=== PATIENT | male | born 1995 | race Two or more races ===

== ENCOUNTER 2020-04-28 10:40 | Emergency (ER) | payer OTHER ==
[~2020-04-28] VITALS: Ht 180.3 cm; Wt 96.2 kg
[2020-04-28 10:47] VITALS: BP 151/84
--- NOTE | 2020-04-28 10:51 | NUR ---
SEEN AND EXAMINED BY .
[2020-04-28] MEDS ORDERED: KETOROLAC TROMETHAMINE 15 MG/ML VIAL ONE (10:55)
[2020-04-28] MEDS ORDERED: TDAP [DIPH/PERTUSSIS/TET] 0.5 ML VIAL IM ONE ×2 (10:55→11:00)
--- NOTE | 2020-04-28 10:58 | NUR ---
PT IS WHEELED TO RADIOLOGY FOR XRAY.
[2020-04-28] MEDS ORDERED: KETOROLAC TROMETHAMINE INJ 30 MG/ML VIAL IM ONE (11:00)
== END 2020-04-28 12:30 | disposition home or self-care (01) ==
LOC: ER 10:40
DX: S60.221A Contusion of right hand, initial encounter (principal); M25.531 Pain in right wrist; W22.01XA Walked into wall, initial encounter; Y93.89 Activity, other specified; Y92.89 Other specified places as the place of occurrence of the external cause; Y99.8 Other external cause status
CPT/HCPCS: 73110; 73130-TC; 90715; J1885